=== PATIENT | female | born 1965 | race Hispanic/Latino ===

== ENCOUNTER 2024-09-19 18:50 | Emergency (ER) | payer BC ==
[~2024-09-19 18:50] MED LIST: DOCU-116 PO; POLY17PO4 PO
--- NOTE | 2024-09-19 19:11 | ERN ---
ED Note History of Present Illness Stated Complaint: ABDOMINAL PAIN Chief Complaint: Abdominal Pain Time Seen by MD: 18:51 Dictation: PATIENT IS A 59-YEAR-OLD FEMALE SENT HERE BY HER PRIMARY CARE DOCTOR AFTER BEING CALLED TODAY AND TOLD THAT SHE HAD POSSIBLE ACUTE PANCREATITIS AND POSSIBLE URINARY TRACT INFECTION. SHE HAS BEEN HAVING ABDOMINAL PAIN WITH NAUSEA FOR SEVERAL DAYS LABS HAVE BEEN DRAWN BY HER DOCTOR AND SHE WAS CALLED THIS AFTERNOON. SHE DENIES CHEST PAIN BACK PAIN NO SOB. Allergies: Coded Allergies: No Known Allergies (Unverified Allergy, Unknown, 09/09/24) Home Meds Active Scripts Polyethylene Glycol 3350 (Miralax) 17 Gram Powd.pack, 1 PACKET PO DAILY for constipation, #30 PACKET 0 Refills dissolve in water Prov:SUKH WRIGHT MD 09/12/24 Docusate Sodium (Colace) 100 Mg Capsule, 100 MG PO BID for 14 Days, #28 CAP 0 Refills Prov:SUKH WRIGHT MD 09/12/24 Past Medical History Past Medical History: No Pertinent History Surgical History: None History: Not Applicable RN Note Reviewed/Agreed w/PFSH: Yes Review of System Dictation CONSTITUTIONAL: NEGATIVE EXCEPT FOR HPI HEAD/FACE: NEGATIVE EXCEPT FOR HPI EENT: NEGATIVE EXCEPT FOR HPI RESPIRATORY: NEGATIVE EXCEPT FOR HPI GASTROINTESTINAL/ABDOMINAL: NEGATIVE EXCEPT FOR HPI EPIGASTRIC PAIN WITH NAUSEA GENITOURINARY: NEGATIVE EXCEPT FOR HPI MUSCULOSKELETAL: NEGATIVE EXCEPT FOR HPI INTEGUMENTARY: NEGATIVE EXCEPT FOR HPI NEUROLOGICAL/PSYCH: NEGATIVE EXCEPT FOR HPI HEMATOLOGIC/LYMPHATIC: NEGATIVE EXCEPT FOR HPI ALL SYSTEMS NEGATIVE, EXCEPT NOTED ABOVE. 13 POINT REVIEW OF SYSTEMS ASSESSED AND ALL NEGATIVE EXCEPT FOR ABOVE. Initial Vital Sign VS Vital Signs Date Time Temp Pulse Resp B/P (MAP) Pulse Ox O2 Delivery O2 Flow Rate FiO2 09/19/24 18:53 97.9 84 18 156/85 97 Room Air 0 09/19/24 19:01 21 Physical Exam Dictation VITAL SIGNS REVIEWED GENERAL APPEARANCE: ALERT, ORIENTED X 3, MODERATE ACUTE DISTRESS, WELL DEVELOPED, NOURISHED. HEAD AND FACE: NON-TRAUMATIC. EYES: PERRL, PINK CONJUNCTIVAS, EYELID NO TRAUMA, ANTERIOR CHAMBER WITH ARCUS SENILIS. EARS: PINNAS INTACT AND NO SIGNS OF TRAUMA OR ERYTHEMA EAR CANALS CLEAR AND NO DISCHARGE TM NO ERYTHEMA NOSE: NO DISCHARGE, NO BLEEDING. OROPHARYNX: MOUTH NORMAL, TONGUE PINK, PHARYNX CLEAR,NO ERYTHEMA, TONSILS NO EXUDATES, NO ABSCESSES NOTED, MUCOUS MEMBRANE MOIST NECK: SUPPLE, NON-TENDER, NO THYROMEGALY, NO MASSES, NO JVD, NO BRUITS BREAST:DEFERRED CHEST:NO TENDERNESS, NO CREPITUS, NO PARADOXICAL MOVEMENT, NO RETRACTIONS LUNGS:CLEAR, WELL-VENTILATED, SYMMETRIC, NO RALES, NO WHEEZING, NO RHONCHI, NO STRIDOR, GOOD BREATH SOUNDS BILATERALLY HEART: REGULAR RATE, REGULAR RHYTHM, NO MURMUR, NO GALLOPS VASCULAR: NO PERIPHERAL EDEMA, ABDOMEN: SOFT, POSITIVE BOWEL SOUNDS, NONDISTENDED, NO GUARDING, MODERATE EPIGASTRIC TENDERNESS WITH PALPATION, NO REBOUND, NO MASSES NO HEPATOMEGALY, NO SPLENOMEGALY, NO TORRES'S SIGN, NO HERNIAS. RECTAL: DEFERRED GENITAL: DEFERRED NEUROLOGICAL: NORMAL SPEECH, MOTOR FUNCTION INTACT, SENSORY FUNCTION INTACT MUSCULOSKELETAL: NECK NONTENDER, FULL RANGE OF MOTION, BACK NONTENDER, FULL RANGE OF MOTION, EXTREMITIES: NONTENDER, FULL RANGE OF MOTION SKIN: COLOR PINK, DRY, NO TURGOR, NO RASH, NO LACERATIONS, NO ABRASIONS, NO CONTUSIONS. LYMPHATIC: DEFERRED Results (Laboratory/Radiology) Laboratory/Radiology Laboratory Tests Test 09/19/24 20:04 09/19/24 20:57 White Blood Count 8.0 K/uL (4.8-10.8) Red Blood Count 3.90 MIL/uL (4.00-5.50) L Hemoglobin 12.4 g/dL (12.0-16.0) Hematocrit 36.5 % (36-48) Mean Corpuscular Volume 93.6 fL (79-99) Mean Corpuscular Hemoglobin 31.8 pg (27.0-33.0) Mean Corpuscular Hemoglobin Concent 34.0 g/dL (32.0-36.0) Red Cell Distribution Width 11.9 % (11.0-15.5) Platelet Count 350 K/uL (130-400) Mean Platelet Volume 8.7 fL (7.5-10.5) Immature Granulocyte % (Auto) 0.6 % (0-1) Neutrophils (%) (Auto) 63.5 % (40.0-77.0) Lymphocytes (%) (Auto) 26.8 % (21.0-51.0) Monocytes (%) (Auto) 8.0 % (3.0-13.0) Eosinophils (%) (Auto) 0.7 % (0.0-8.0) Basophils (%) (Auto) 0.4 % (0.0-5.0) Neutrophils # (Auto) 5.1 K/uL (1.8-7.7) Lymphocytes # (Auto) 2.2 K/uL (1.0-4.8) Monocytes # (Auto) 0.6 K/uL (0.1-1.0) Eosinophils # (Auto) 0.06 K/uL (0.00-0.70) Basophils # (Auto) 0.03 K/uL (0.00-0.20) Absolute Immature Granulocyte (auto 0.05 K/uL (0-1) Nucleated Red Blood Cells 0.0 % (0.0-0.19) Sodium Level 139 mmol/L (136-145) Potassium Level 3.9 mmol/L (3.5-5.1) Chloride Level 100 mmol/L (101-111) L Carbon Dioxide Level 34 mmol/L (21-32) H Blood Urea Nitrogen 13 mg/dL (7-18) Creatinine 1.0 mg/dL (0.5-1.0) Glomerular Filtration Rate Calc 64 mL/min (>90) Random Glucose 122 mg/dL (70-105) H Total Calcium 9.4 mg/dL (8.5-10.1) Troponin I High Sensitivity 13 ng/L (4-50) Triglycerides Level 142 mg/dL (30-200) Lipase 68 U/L (16-77) Urine Color LIGHT-YELLOW (YELLOW) Urine Appearance CLEAR (CLEAR) Urine pH 7.5 (5.0-8.0) Urine Specific [place] 1.009 (1.001-1.031) Urine Protein NEGATIVE mg/dL (NEGATIVE) Urine Glucose (UA) NEGATIVE mg/dL (NEGATIVE) Urine Ketones 10 mg/dL (NEGATIVE) H Urine Occult Blood NEGATIVE (NEGATIVE) Urine Nitrate NEGATIVE (NEGATIVE) Urine Bilirubin NEGATIVE mg/dL (NEGATIVE) Urine Urobilinogen 0.2 mg/dL (0.2-1.0) Urine Leukocyte Esterase NEGATIVE Diamante/uL Urine RBC 0-1 /HPF (0-1) Urine WBC 2-5 /HPF (0-1) H Urine Squamous Epithelial Cells RARE /HPF (0-2) Urine Bacteria None /HPF (None Seen) Labs Reviewed?: Yes EKG Comment: EKG NORMAL SINUS RHYTHM/HEART RATE 68/AXIS NORMAL/NO ECTOPY ED Course ED Course Orders Procedure Category Date Status Time Cbc With Differential LAB 09/19/24 Complete 19:07 Troponin I High LAB 09/19/24 Complete Sensitivity 19:07 Urinalysis Profile LAB 09/19/24 Complete 19:07 12 Lead Ekg Tracing- EKG 09/19/24 Logged Technical 19:07 Famotidine 20mg Vial PHA 09/19/24 Complete (Pepcid 20mg Vial) 19:30 Lipase LAB 09/19/24 Complete 19:07 Basic Metabolic Panel LAB 09/19/24 Complete 19:07 Triglycerides LAB 09/19/24 Complete 19:07 0.9%Nacl 1000ml (Ns PHA 09/19/24 Complete 1000ml) 19:30 Morphine 2mg Syg PHA 09/19/24 Complete (Morphine 2mg Syg) 19:30 Ondansetron 4mg Inj PHA 09/19/24 Complete (Zofran 4mg Inj) 19:30 12 Lead Ekg Tracing- EKG 09/19/24 Logged Technical 19:09 Metoclopramide 10 PHA 09/19/24 In Process Mg/2 Ml Vial (Reglan 1 22:00 Current Medications Medications (Trade) Dose Ordered Sig/Martha Route PRN Reason Start Time Stop Time Status Last Admin Dose Admin Famotidine (Pepcid 20mg Vial) 20 mg ONCE ONCE IV 09/19/24 19:30 09/19/24 19:31 DC 09/19/24 21:05 Metoclopramide HCl (regLAN 10MG IV) 10 mg ONCE ONCE IVP 09/19/24 22:00 09/19/24 22:01 Morphine Sulfate (morPHINE 2MG SYG) 2 mg ONCE ONCE IVP 09/19/24 19:30 09/19/24 19:31 DC 09/19/24 21:05 Ondansetron HCl (zoFRAN 4MG INJ) 4 mg ONCE ONCE IVP 09/19/24 19:30 09/19/24 19:31 DC 09/19/24 21:04 Sodium Chloride 1,000 ml @ 0 mls/hr ONCE ONCE IV 09/19/24 19:30 09/19/24 19:31 DC 09/19/24 21:05 Vital Signs Date Time Temp Pulse Resp B/P (MAP) Pulse Ox O2 Delivery O2 Flow Rate FiO2 09/19/24 20:57 97.9 84 18 156/86 97 Room Air* 0 21 09/19/24 19:01 97.9 84 18 156/85 97 Room Air* 0 21 09/19/24 18:53 97.9 84 18 156/85 97 Room Air 0 2135, SPOKE WITH PATIENT AND AT LENGTH PATIENT HAD JUST BEEN DISCHARGED [place] [facility] AFTER HAVING A SMALL BOWEL OBSTRUCTION. SHE IS CURRENTLY ABLE TO EAT AND IS HAVING BOWEL MOVEMENTS REGULARLY, HAD ONE TODAY AND IT WAS SOFT. SHE STATES SHE STILL FEELS BLOATED DESPITE BEING ABLE TO EAT AND HAVING BOWEL MOVEMENTS. PATIENT CURRENTLY ON DOCUSATE SODIUM 100 MG B.I.D. AND MIRALAX. I WILL GIVE HER REGLAN 10 MG AC AND HS TO TAKE AT HOME. SHE HAS AN APPOINTMENT IN THE NEXT SEVERAL DAYS WITH [facility]. HEART Score Response (Comments) Value EKG: Normal 0 Age: 45-65yrs (+1) 1 Risk Factors: 1-2 risk factors (+1) 1 Initial Troponin: Normal limit (0) 0 Total 2 Medical Decision Making MDM MDM: DIFFERENTIAL DIAGNOSIS: KEEP PANCREATITIS, UTI/PYELONEPHRITIS/ELECTROLYTE IMBALANCE/DEHYDRATION/ACS/AMI RATIONALE: TESTS CONSIDERED AND ORDERED SECONDARY TO SHARED DECISION MAKING INCLUDE: EKG/LABS PREVIOUS OUTSIDE RECORDS REVIEWED: OLD ER VISITS. REVIEWED RISK OF COMPLICATION AND/OR MORBIDITY OR MORTALITY OF PATIENT MANAGEMENT: NONE MEDICATIONS-PER MEDICATION RECONCILIATION SEE NURSE'S NOTES NEED FOR HOSPITALIZATION: PATIENT DOES NOT MEET CRITERIA FOR HOSPITALIZATION. NO PATIENT STATES SHE IS EATING NOW AND ABLE TO HAVE BOWEL MOVEMENTS REGULARLY. LAST BOWEL MOVEMENT WAS TODAY AND SOFT NEED FOR EMERGENCY MAJOR/MINOR SURGERY: NO THERE ARE NO SOCIAL CONCERNS WITH THIS PATIENT. PRESCRIPTION DRUG MANAGEMENT REGLAN A.C. AND HS AND CONTINUE THE REST FOR MEDICATIONS PRESCRIPTIONS WILL INCLUDE SYMPTOMATIC CARE PATIENT'S PRIOR EXTERNAL MEDICAL RECORDS FROM OTHER ER VISITS WERE REVIEWED BY ME INDICATED. PRIOR TESTING AND RESULTS FROM PREVIOUS VISITS WERE REVIEWED. PRIOR TESTS WERE TAKEN INTO ACCOUNT WITH MEDICAL DECISION MAKING AND RESOURCE UTILIZATION, INDEPENDENT HISTORIAN/HISTORIANS WERE USED TO OBTAIN COMPLETE MEDICAL HISTORY. I INDEPENDENTLY INTERPRETED THE TEST THAT WERE PERFORMED, RESULTS WERE REVIEWED BY ME AND CONSIDERED FINDINGS ON RADIOLOGY IF ORDERED. MEDICAL MANAGEMENT AND EXAMINATION INTERPRETATION DISCUSSIONS WERE HAD BY ME WITH OTHER QUALIFIED HEALTHCARE PROFESSIONALS INDICATED FOR THE PATIENT'S CARE. DX & DISP Disposition: Discharge Departure Impression: Primary Impression: Hypochloremia Additional Impressions: Hyperglycemia, History of small bowel obstruction Condition: Stable Scripts Metoclopramide HCl (Reglan 10 mg Tab) 10 Mg Tablet 10 MG PO ACHS for 10 Days, #40 TAB 0 Refills Prov: LANDON MANZANARES NP 09/19/24 Additional Instructions: FOLLOW-UP WITH PRIMARY CARE PROVIDER IN 1 TO 2 DAYS. TAKE MEDICATIONS DIRECTED HERE IN THE EMERGENCY ROOM. OKAY TO CONTINUE HOME MEDICATIONS UNLESS OTHERWISE DISCUSSED DURING YOUR VISIT IN THE EMERGENCY ROOM TODAY. RETURN TO YOUR NEAREST EMERGENCY ROOM IF SYMPTOMS WORSEN OR IF THERE IS NO IMPROVEMENT. CALL 911 IF YOU NEED IMMEDIATE ASSISTANCE. TAKE TYLENOL OR MOTRIN [id number] NEEDED AND IF NO CONTRAINDICATIONS ARE PRESENT. INCREASE ORAL HYDRATION. A WOUND CULTURE OR URINE [facility] PLEASE FOLLOW-UP WITH PRIMARY CARE PROVIDER AND ADVISE THEM TO GET REPEAT PORTS FROM OUR FACILITY. IF YOU HAD ANY SREEKANTH WRAP/SPLINTS THAT WERE APPLIED HERE, PLEASE DO NOT REMOVE THEM UNTIL YOU SEE YOUR PRIMARY CARE OR SPECIALTY. CONTINUE ALL YOUR MEDICATIONS FROM YOUR DISCHARGE ON 09/13. INCREASE YOUR WATER INTAKE. TAKE REGLAN 30 MINUTES BEFORE MEALS AND BEDTIME DIRECTED. KEEP YOUR APPOINTMENT WITH YOUR MAIL CARRIER TECHNICIAN IN THE NEXT SEVERAL DAYS. RETURN TO THE EMERGENCY ROOM IF UNABLE TO KEEP FOOD OR FLUIDS DOWN. Referrals: MARCELLA OCASIO MD (PCP) Time of Disposition: 21:42 I have reviewed the case, and I agree with, Diagnosis and Plan LANDON MANZANARES NP Sep 19, 2024 19:11
[2024-09-19 20:10] LABS: BASOPHILS # (AUTO) 0.03 K/uL (0.00-0.20); BASOPHILS % (AUTO) 0.4 % (0.0-5.0); EOSINOPHILS # (AUTO) 0.06 K/uL (0.00-0.70); EOSINOPHILS % (AUTO) 0.7 % (0.0-8.0); HEMATOCRIT 36.5 % (36-48); IMMATURE GRANULOCYTE ABSOLUTE 0.05 K/uL (0-1); LYMPHOCYTES # (AUTO) 2.2 K/uL (1.0-4.8); LYMPHOCYTES % (AUTO) 26.8 % (21.0-51.0); MEAN CORPUSCULAR HEMOGLOBIN 31.8 pg (27.0-33.0); MEAN CORPUSCULAR VOLUME 93.6 fL (79-99); MONOCYTES # (AUTO) 0.6 K/uL (0.1-1.0); NEUTROPHILS # (AUTO) 5.1 K/uL (1.8-7.7); NEUTROPHILS % (AUTO) 63.5 % (40.0-77.0); PLATELET COUNT (AUTO) 350 K/uL (130-400); RED CELL DISTRIBUTION WIDTH 11.9 % (11.0-15.5)
[2024-09-19 20:23] LABS: POTASSIUM 3.9 mmol/L (3.5-5.1)
[2024-09-19 20:57] VITALS: BP 156/86; PULSE 84; RESP 18; TEMP 97.9; O2SAT 97
[2024-09-19] MEDS: ondanSETRON 4MG INJ IVP ONE (21:04)
[2024-09-19] MEDS: FAMOTIDINE 20MG VIAL IV ONE (21:05)
[2024-09-19] MEDS: morPHINE 2 MG SYG IVP ONE (21:05)
[2024-09-19] MEDS: 0.9%NACL 1000ML 1,000 ML IV ONE (21:05)
[2024-09-19 21:09] LABS: APPEARANCE,URINE CLEAR (CLEAR); BILIRUBIN,URINE NEGATIVE (NEGATIVE); COLOR,URINE LIGHT-YELLOW (YELLOW); GLUCOSE, URINE (UA) NEGATIVE (NEGATIVE); KETONES,URINE 10 mg/dL (NEGATIVE); LEUKOCYTE ESTERASE ,URINE NEGATIVE Leu/uL (NEGATIVE); NITRATE,URINE NEGATIVE (NEGATIVE); OCCULT BLOOD,URINE NEGATIVE (NEGATIVE); PH,URINE 7.5 (5.0-8.0); PROTEIN,URINE NEGATIVE (NEGATIVE); UROBILINOGEN,URINE 0.2 mg/dL (0.2-1.0)
[2024-09-19 21:10] LABS: ADD UA MICROSCOPIC YES
[2024-09-19 21:12] LABS: RBC,URINE 0-1 /HPF (0-1); SQUAMOUS EPITHELIAL CELL,UR RARE /HPF (0-2)
[2024-09-19] MEDS ORDERED: METO10TA41 PO (21:42)
[2024-09-19] MEDS: metoCLOPRAmide 10 MG/2 ML VIAL IVP ONE (22:05)
--- NOTE | 2024-09-20 07:49 | EKG ---
[facility] Test Date: 2024-09-19 Test Time: 19:46:13 Pat Name: JOEL SIMMONS Department: [facility] Room: Gender: F Medical Management Specialist: [id number] : 1965 Requested By: LANDON MANZANARES Order Number: [id number] Reading MD: Hernandez Farah Measurements Intervals [place] Rate: 68 P: 25 NC: 113 QRS: 52 QRSD: 89 T: 45 QT: 394 QTc: 418 Interpretive Statements Sinus rhythm Compared to ECG 09/09/2024 10:26:16 No significant changes Electronically Signed On 09-20-2024 15:44:15 BUNG SEWER by Hernandez Farah Please click the below link to view image of tracing.
== END 2024-09-19 22:10 | disposition home or self-care (01) ==
LOC: EDH 18:50
DX: E87.8 Other disorders of electrolyte and fluid balance, not elsewhere classified (principal); R73.9 Hyperglycemia, unspecified
CPT/HCPCS: 99284; 96374; 96375; 84478; 84484; 80048; 83690; 85025; 81001; 36415; 93005; J3490; J2270; J7030; J2405; J2765